=== PATIENT | female | born 1960 | race Caucasian/White ===

== ENCOUNTER 2020-12-10 21:52 | Emergency (ER) | payer MEDICARE, MEDICAID ==
--- NOTE | 2020-12-10 22:48 | EDM.PDOC ---
ED HPI GENERAL MEDICAL PROBLEM - General Chief Complaint: Abdominal Pain Stated Complaint: [facility] Time Seen by Provider: 12/10/20 22:20 Source of Information: Reports: Patient, EMS History Limitations: Reports: No Limitations - History of Present Illness INITIAL COMMENTS - FREE TEXT/NARRATIVE: 60-year-old female brought in by ambulance with abdominal pain, weakness, nausea and vomiting and decreased appetite. She has been having symptoms for 2 weeks, she is living in a home that has active COVID-19 and she has not been vaccinated. On arrival the ambulance found her to have O2 saturations only 85%. She was brought in with supplemental oxygen, O2 saturations at 95%. She looks very weak and ill. She is not febrile. She has generalized muscle aches, she denies any shortness of breath or cough until the last 2 or 3 days. She had a headache for the first 7 days but that is resolved, her main complaint is epigastric discomfort and nausea. Onset: Gradual Duration: Week(s): (Symptoms for 2 weeks, respiratory symptoms have been more recent) Associated Symptoms: Reports: Cough, Loss of Appetite, Malaise, Nausea/Vomiting, Shortness of Breath, Weakness. Denies: Chest Pain Upper Abdomen Pain Score (Numeric/FACES): 9 - Related Data Allergies Allergy/AdvReac Type Severity Reaction Status Date / Time cat scan dye Allergy Anaphylactic Uncoded 12/10/20 22:13 Shock electric magnetic Allergy Other Uncoded 12/10/20 22:13 Home Meds: Home Meds NK [No Known Home Meds] 12/10/20 [History] Past Medical History HEENT History: Reports: None Cardiovascular History: Reports: None Respiratory History: Reports: None Genitourinary History: Reports: None [employer] History: Reports: Musculoskeletal History: Reports: None Neurological History: Reports: None Psychiatric History: Reports: None Endocrine/Metabolic History: Reports: None Hematologic History: Reports: None Immunologic History: Reports: None Other Oncologic History: States she had cancer all over Dermatologic History: Reports: None - Infectious Disease History Infectious Disease History: Reports: None - Past Surgical History HEENT Surgical History: Reports: Naso-Sinus Surgery GI Surgical History: Reports: Appendectomy, Colonoscopy Female Surgical History: Reports: Tubal Ligation Musculoskeletal Surgical History: Reports: None Social & Family History - Tobacco Use Tobacco Use Status *Q: Never Tobacco User - Caffeine Use Caffeine Use: Reports: None - Recreational Drug Use Recreational Drug Use: No ED ROS GENERAL - Review of Systems Review Of Systems: See Below Constitutional: Reports: Chills, Malaise, Decreased Appetite HEENT: Denies: Rhinitis, Throat Pain, Vision Change Respiratory: Reports: Shortness of Breath, Cough. Denies: Sputum Cardiovascular: Denies: Chest Pain, Palpitations Endocrine: Reports: Fatigue GI/Abdominal: Reports: Abdominal Pain, Nausea, Vomiting : Reports: No Symptoms Musculoskeletal: Reports: Muscle Pain (Generalized body aches) Skin: Reports: No Symptoms Neurological: Reports: Dizziness, Weakness ED EXAM, GENERAL - Physical Exam Exam: See Below Exam Limited By: No Limitations General Appearance: Alert, No Apparent Distress, Other (Looks weak and ill) Eye Exam: Bilateral Eye: Normal Inspection (Normal hydration, no jaundice) Throat/Mouth: Normal Inspection Head: Atraumatic Respiratory/Chest: Respiratory Distress (Mild increased respiratory effort, diffuse bilateral widespread rales especially on expiration) Cardiovascular: Regular Rate, Rhythm. No: Tachycardia GI/Abdominal: Normal Bowel Sounds, Soft, Non-Tender Extremities: Normal Inspection. No: Pedal Edema Neurological: Alert, Oriented, No Motor/Sensory Deficits, Other (Generalized weakness but no asymmetry) Psychiatric: Flat Affect Skin Exam: Warm, Dry Course - Vital Signs Last Recorded V/S: Last Vital Signs Temp 98.5 F 12/10/20 22:19 Pulse 85 12/11/20 00:54 Resp 16 12/11/20 00:54 BP 112/71 12/11/20 00:54 Pulse Ox 96 12/11/20 00:54 - Orders/Labs/Meds Orders: Active Orders 24 hr Category Date Time Status Chest 1V Frontal [CR] Stat Exams 12/10/20 22:39 Taken Sodium Chloride 0.9% [Normal Saline] 1,000 ml Med 12/11/20 00:15 Active IV ASDIRECTED Medication Orders Sodium Chloride (Normal Saline) 1,000 mls @ 500 mls/hr IV ASDIRECTED REBECCA Last Admin: 12/11/20 00:14 Dose: 500 mls/hr Documented by: PREILOR Labs: Laboratory Tests 12/10/20 12/10/20 12/10/20 Range/Units 22:42 22:49 22:49 WBC 8.4 (4.5-11.0) K/uL RBC 5.09 (3.30-5.50) M/uL Hgb 15.3 H (12.0-15.0) g/dL Hct 44.4 (36.0-48.0) % MCV 87 (80-98) fL MCH 30 (27-31) pg MCHC 35 (32-36) % Plt Count 306 (150-400) K/uL Neut % (Auto) 83.0 H (36-66) % Lymph % (Auto) 10.1 L (24-44) % [place] % (Auto) 6.5 H (2-6) % Eos % (Auto) 0.0 L (2-4) % Baso % (Auto) 0.4 (0-1) % D-Dimer, Quantitative 869.32 H (0.0-500.0) ng/mL Sodium (140-148) mmol/L Potassium (3.6-5.2) mmol/L Chloride (100-108) mmol/L Carbon Dioxide (21-32) mmol/L Anion Gap (5.0-14.0) mmol/L BUN (7-18) mg/dL Creatinine (0.6-1.0) mg/dL Est Cr Clr Drug Dosing mL/min Estimated GFR (MDRD) (>60) Glucose (74-106) mg/dL Calcium (8.5-10.1) mg/dL Total Bilirubin (0.2-1.0) mg/dL AST (15-37) U/L ALT (12-78) U/L Alkaline Phosphatase (46-116) U/L Total Protein (6.4-8.2) g/dL Albumin (3.4-5.0) g/dL Globulin (2.3-3.5) g/dL Albumin/Globulin Ratio (1.2-2.2) Lipase (73-393) U/L SARS CoV-2 RNA Rapid MATTHEW Positive H 12/10/20 12/10/20 Range/Units 22:49 22:49 WBC (4.5-11.0) K/uL RBC (3.30-5.50) M/uL Hgb (12.0-15.0) g/dL Hct (36.0-48.0) % MCV (80-98) fL MCH (27-31) pg MCHC (32-36) % Plt Count (150-400) K/uL Neut % (Auto) (36-66) % Lymph % (Auto) (24-44) % [place] % (Auto) (2-6) % Eos % (Auto) (2-4) % Baso % (Auto) (0-1) % D-Dimer, Quantitative (0.0-500.0) ng/mL Sodium 131 L (140-148) mmol/L Potassium 3.5 L (3.6-5.2) mmol/L Chloride 94 L (100-108) mmol/L Carbon Dioxide 25 (21-32) mmol/L Anion Gap 15.5 H (5.0-14.0) mmol/L BUN 15 (7-18) mg/dL Creatinine 0.8 (0.6-1.0) mg/dL Est Cr Clr Drug Dosing 61.09 mL/min Estimated GFR (MDRD) > 60 (>60) Glucose 117 H (74-106) mg/dL Calcium 8.3 L (8.5-10.1) mg/dL Total Bilirubin 0.4 (0.2-1.0) mg/dL AST 43 H (15-37) U/L ALT 37 (12-78) U/L Alkaline Phosphatase 66 (46-116) U/L Total Protein 6.6 (6.4-8.2) g/dL Albumin 2.6 L (3.4-5.0) g/dL Globulin 4.0 H (2.3-3.5) g/dL Albumin/Globulin Ratio 0.7 L (1.2-2.2) Lipase 267 (73-393) U/L SARS CoV-2 RNA Rapid MATTHEW Meds: Medications Generic Name Dose Route Start Last Admin Trade Name Freq PRN Reason Stop Dose Admin Sodium Chloride 1,000 mls @ 500 mls/hr 12/11/20 00:15 12/11/20 00:14 Normal Saline IV 500 mls/hr ASDIRECTED REBECCA Administration Discontinued Medications Generic Name Dose Route Start Last Admin Trade Name Freq PRN Reason Stop Dose Admin Dexamethasone 6 mg 12/10/20 23:47 12/11/20 00:04 Dexamethasone 4 Mg/Ml Sdv IVPUSH 12/10/20 23:48 6 mg ONETIME ONE Administration Fentanyl 25 mcg 12/11/20 00:00 09/02/21 00:24 Fentanyl 100 Mcg/2 Ml Sdv IVPUSH 12/11/20 00:01 25 mcg ONETIME ONE Administration Remdesivir 200 mg/ Sodium 250 mls @ 250 mls/hr 12/10/20 23:47 12/11/20 00:18 Chloride IV 12/10/20 23:48 250 mls/hr ONETIME ONE Administration Ondansetron HCl 4 mg 12/11/20 00:00 12/11/20 00:21 Ondansetron 4 Mg/2 Ml Sdv IVPUSH 12/11/20 00:01 4 mg ONETIME ONE Administration - Re-Assessments/Exams Free Text/Narrative Re-Assessment/Exam: 12/10/20 23:54 Chest x-ray was obtained which shows bilateral infiltrates, the right upper lobe looks somewhat consolidated but she is afebrile and her white count is normal. Covid is positive. Liver enzymes are normal, electrolytes are generally reassuring. A [id number] ultrasound at bedside showed no obvious abnormalities of the gallbladder. No ascites. She had no Burton sign. All the symptoms are likely the result of Covid infection. Dr. Tran, ER physician in [place] kindly accepted the patient for transfer and admission. Prior to discharge she was given 200 mg of IV remdesivir and 6 mg of dexamethasone. 12/11/20 00:[address] of the chest abdomen and pelvis was done without contrast, no significant acute findings in the abdomen and the chest looks like Covid infiltrations. Transfer was arranged. 12/11/20 01:40 IMPRESSION: Ground-glass opacities throughout the lungs consistent with COVID-19 infection. No acute intra-abdominal process identified. Hypodense mass in the right thyroid lobe. Recommend nonemergent thyroid ultrasound for further evaluation. Departure - Departure Time of Disposition: 01:25 Disposition: DC/Tfer to Other 70 Clinical Impression: Pneumonia due to COVID-19 virus - Discharge Information Referrals: PCP,Unknown [Primary Care Provider] - Forms: ED Department Discharge Care Plan Goals: Patient will be transferred to [facility] for inpatient treatment of bilateral infiltrates caused by COVID-19, resulting in hypoxia and needing inpatient monitoring and treatment until improved. Sepsis Event Note (ED) - Evaluation Sepsis Screening Result: No Definite Risk - Focused Exam Vital Signs: Vital Signs Temp Pulse Resp BP Pulse Ox 09/02/21 00:54 85 16 112/71 96 12/11/20 00:00 80 18 105/71 96 12/10/20 23:00 98 18 112/62 94 L 12/10/20 22:19 98.5 F 98 20 105/74 95 12/10/20 22:04 98.5 F 98 20 105/74 95 - My Orders Last 24 Hours: My Active Orders 12/10/20 22:39 Chest 1V Frontal [CR] Stat 12/11/20 00:15 Sodium Chloride 0.9% [Normal Saline] 1,000 ml IV ASDIRECTED - Assessment/Plan Last 24 Hours: My Active Orders 12/10/20 22:39 Chest 1V Frontal [CR] Stat 12/11/20 00:15 Sodium Chloride 0.9% [Normal Saline] 1,000 ml IV ASDIRECTED
[2020-12-10] MEDS ORDERED: Dexamethasone 4 MG/ML SDV IVPUSH ONE (23:47)
[2020-12-10] MEDS ORDERED: REMDESIVIR 200 MG in Sodium Chloride 0.9% 250 ML IV ONE (23:47)
[2020-12-11] MEDS ORDERED: fentaNYL 100 MCG/2 ML SDV IVPUSH ONE
[2020-12-11] MEDS ORDERED: Ondansetron 4 MG/2 ML SDV IVPUSH ONE
[2020-12-11] MEDS ORDERED: Sodium Chloride 0.9% 1,000 ML IV SCH (00:15)
--- NOTE | 2020-12-11 01:18 | CRLCT ---
For Patients: As a result of the Century Cures Act, medical imaging exams and procedure reports are released immediately into your electronic medical record. You may view this report before your referring provider. If you have questions, please contact your health care provider. INDICATION: Abnormal chest radiograph, COVID positive, nausea, abdominal pain TECHNIQUE: CT chest, abdomen and pelvis acquired without IV contrast. COMPARISON: Chest radiograph December 10, 2020 FINDINGS: Chest: Cardiovascular structures: Heart size is normal. Thoracic aorta and main pulmonary artery are normal in caliber. Mediastinum and clayton: No mass or adenopathy. There is a 1.6 x 0.8 cm hypodense lesion in the right thyroid lobe measuring 56 Hounsfield units in density. Lungs: Bilateral ground glass opacities throughout the lungs. Pleura and pericardium: No effusions. Chest wall and axilla: No mass or adenopathy. Bones: Unremarkable for age. Abdomen and Pelvis: Liver: Unremarkable. Spleen: Unremarkable. Pancreas: Unremarkable. Gallbladder and bile ducts: Unremarkable. Adrenal glands: Unremarkable. Kidneys: Unremarkable. GI tract: Unremarkable. Vascular structures: Unremarkable. Lymph nodes: Unremarkable. Miscellaneous: Unremarkable. No free air or significant free fluid. Pelvic Organs: Unremarkable. Bones: Unremarkable for age. IMPRESSION: Ground-glass opacities throughout the lungs consistent with COVID-19 infection. No acute intra-abdominal process identified. Hypodense mass in the right thyroid lobe. Recommend nonemergent thyroid ultrasound for further evaluation. Please note that all CT scans at this facility use dose modulation, iterative reconstruction, and/or weight-based dosing when appropriate to reduce radiation dose to as low as reasonably achievable. Dictated by Annika Ramírez MD @ 12/11/2020 1:15:26 AM (Electronically Signed)
--- NOTE | 2020-12-11 09:07 | CR ---
CHEST: Portable 12/10/2020 at 11:00 PM CLINICAL HISTORY:Cough and hypoxia COMPARISON:None FINDINGS: Patient is bilateral perihilar infiltrates. Heart and pulmonary vascular are normal. There are no effusions. Impression: Bilateral pulmonary infiltrates
== END 2020-12-11 01:15 | disposition other institution (70) ==
LOC: JP.ED 21:52
DX: U07.1 COVID-19 (principal); J12.82 Pneumonia due to coronavirus disease 2019; Z91.041 Radiographic dye allergy status; Z91.09 Other allergy status, other than to drugs and biological substances
CPT/HCPCS: 36415; 71045; 71250; 74176; 80053; 83690; 85025; 85379; 96374; 96375; 99285; J1100; J2405; J3010; J7030; J7050; U0002